=== PATIENT | male | born 1955 | race Two or more races ===

== ENCOUNTER 2017-07-05 19:52 | Inpatient (IN) | payer MEDICARE, OTHER, MEDICAID ==
--- NOTE | 2017-07-05 21:39 | ED Physician Chart ---
ED Chief Complaint/HPI - Patient Information Date Seen:: 07/05/17 Time Seen:: 21:10 Chief Complaint:: agitation History of Present Illness:: location: general quality: agitation severity: moderate duration: one day context: pt with agitation at SNF, evaluated by RNs at facility and physician contacted. advised send to ER for medical evaluation and then possible yury-psyc evaluation. medics report stable vital signs during transport. on arrival to ER, pt in stable condition while in ER no acute medical complaint. mod factors: none assoc s/s: none hx from medics, RNs, patient Allergies:: Allergies Allergy/AdvReac Type Severity Reaction Status Date / Time No Known Allergies Allergy Verified 07/05/17 21:10 Vitals:: Vital Signs - 8 hr 07/05/17 20:30 Temp 98.0 F HR 65 RR 18 BP 118/70 O2 Sat % 100 Historian:: Patient, EMS, Other Review:: Nurse's Note Reviewed, EMS run form Reviewed ED Review of Systems - Review of Systems General/Constitutional: No fever, No chills, No weight loss, No weakness, No diaphoresis, No edema, No loss of appetite Skin: No skin lesions, No rash, No bruising Head: No headache, No light-headedness Eyes: No loss of vision, No pain, No diplopia ENT: No earache, No nasal drainage, No sore throat, No tinnitus Neck: No neck pain, No swelling, No thyromegaly, No stiffness, No mass noted Cardio Vascular: No chest pain, No palpitations, No PND, No orthopnea, No edema Pulmonary: No SOB, No cough, No sputum, No wheezing GI: No nausea, No vomiting, No diarrhea, No pain, No melena, No hematochezia, No constipation, No hematemesis G/U: No dysuria, No frequency, No hematuria Musculoskeletal: No bone or joint pain, No back pain, No muscle pain Endocrine: No polyuria, No polydipsia Psychiatric: No prior psych history, No depression, No anxiety, No suicidal ideation Hematopoietic: No bruising, No lymphadenopathy Allergic/Immuno: No urticaria, No angioedema Neurological: No syncope, No focal symptoms, No weakness, No paresthesia, No headache, No seizure, No dizziness, No confusion, No vertigo ED Past Medical History - Past Medical History Past Medical History: HTN, CAD, CVA/TIA, Other (cervical stenosis) Family History: None Social History: Smoker, No Alcohol, No Drug Use, Single, Care Facility Surgical History: other (back surgery, dilaudid pump) Psychiatricy History: Other Medication: Reviewed Family Medical History - Family Member Mother Ethnicity: Non- ED Physical Exam - Physical Examination General/Constitutional: Awake, Well-developed, well-nourished, Alert, No distress, GCS 15, Non-toxic appearing, Ambulatory Head: Atraumatic Eyes: Lids, conjuctiva normal, PERRL, EOMI Skin: Nl inspection, No rash, No skin lesions, No ecchymosis, Well hydrated, No lymphadenopathy ENMT: External ears, nose nl Neck: Nontender, Full ROM w/o pain, No JVD, No nuchal rigidity, No bruit, No mass, No stridor Respiratory: Nl effort/Exclusion, Clear to Auscultation, No Wheeze/Rhonchi/Rales Cardio Vascular: RRR, No murmur, gallop, rubs, NL S1 S2 GI: No tenderness/rebounding/guarding, Normal BS's, No mass/bruits, No McBurney tenderness : No CVA tenderness Extremities: No tenderness or effusion, Full ROM, normal strength in all extremities, No edema, Normal digits & nails Neuro/Psych: Alert/oriented, DTR's symmetric, Normal sensory exam, Normal motor strength, Mood normal, Normal gait, No focal deficits Misc: Normal back, No paraspinal tenderness ED Labs/Radiology/EKG Results - Lab Results Results: Laboratory Tests 07/05/17 07/05/17 21:38 21:38 WBC 7.4 RBC 4.10 L Hgb 13.2 Hct 39.7 L MCV 96.8 MCH 32.1 H MCHC Differential 33.2 RDW 13.2 Plt Count 265 MPV 6.8 Neutrophils % 70.2 Lymphocytes % 18.4 L Monocytes % 8.5 Eosinophils % 2.6 Basophils % 0.3 ESR 19 Sodium 134 L Potassium 4.0 Chloride 104 Carbon Dioxide 23.0 Anion Gap 11.0 BUN 55 H Creatinine 2.4 H Est GFR ( Amer) 35.7 Est GFR (Non-Af Amer) 29.5 BUN/Creatinine Ratio 22.9 Glucose 146 H Calcium 9.0 Total Bilirubin 0.3 AST 13 ALT 12 Alkaline Phosphatase 75 Total Protein 6.3 Albumin 4.2 Globulin 2.1 Albumin/Globulin Ratio 2.0 H - EKG Interpretations Comments:: EKG NSR 64 sinus rhythm probable left atrial enlargement left ventricular hypertrophy pt with no chest pain abnormal EKG with chronic findings ER READ ED Assessment - Assessment General Assessment: pt in stable condition while in ER. ED Septic Shock - . Is Septic Shock (SBP<90, OR Lactate>4 mmol\L) present?: No - <6hrs of presentation: Vital Signs: Vital Signs - 8 hr 07/05/17 20:30 Temp 98.0 F HR 65 RR 18 BP 118/70 O2 Sat % 100 ED Reassessment (Disposition) - Reassessment Reassessment:: pt in stable condition while in ER Reassessment Condition:: Unchanged - Diagnosis Diagnosis:: medical clearance for yury-psyc - Patient Disposition Discharge/Transfer:: Acute Care w/in this hosp Admitted to:: [facility] Admitting Medical Physician:: Abiodun Gallagher Admitting Psych Physician:: Flaco Aaron Time:: 22:45 Condition at Disposition:: Stable ED Discharge Plan - Patient Disposition Instructions: Chest Wall Pain, [id number] Additional Instructions: follow up with your industrial gas servicer VIRY drink plenty of water (about 2000ml/day)
[2017-07-05 21:44] LABS: % BASOPHILS 0.3 % (0.0-2.0); % EOSINOPHILS 2.6 % (0.0-5.0); % LYMPHOCYTES 18.4 % (20.0-50.0); % MONOCYTES 8.5 % (2.0-10.0); % NEUTROPHILS 70.2 % (40.0-80.0); EOSINOPHILE ABSOLUTE 0.2 Th/cmm (0.1-0.4); HEMATOCRIT 39.7 % (41.0-60); HEMOGLOBIN 13.2 gm/dL (12-16); LYMPHOCYTE ABSOLUTE 1.4 Th/cmm (1.5-3.0); MEAN CELL VOLUME 96.8 fl (80-99); MEAN CORPUSCULAR HEMOGLOBIN 32.1 pg (26.0-30.0); MEAN CORPUSCULAR HGB CONC 33.2 pg (28.0-36.0); MEAN PLATELET VOLUME 6.8 fl; MONOCYTE ABSOLUTE 0.6 Th/cmm (0.3-1.0); NEUTROPHILE ABSOLUTE 5.2 Th/cmm (1.8-8.0); PLATELET COUNT 265 Th/cmm (150-400); RED CELL DISTRIBUTION WIDTH 13.2 % (11.5-20.0); WHITE BLOOD COUNT 7.4 Th/cmm (4.8-10.8)
[2017-07-05 22:00] LABS: ALBUMIN 4.2 gm/dL (4.2-5.5); BILIRUBIN,TOTAL 0.3 mg/dL (0.3-1.0); CREATININE - SERUM 2.4 mg/dL (0.7-1.3); GFR AFRICAN-AMERICAN 35.7 ml/min (>90); GFR NON AFRICAN-AMERICAN 29.5 ml/min; TOTAL PROTEIN,SERUM 6.3 gm/dL (6.0-8.3)
[2017-07-05 22:19] LABS: ESR SEDIMENTATION SED RATE 19 mm/hr (0-20)
[2017-07-06 00:50] VITALS: BP 162/94
[2017-07-06] MEDS ORDERED: RANOLAZINE 1000 MG PO SCH (09:00)
--- NOTE | 2017-07-06 23:29 | History & Physical ---
ADMIT DATE: 07/05/2017 HISTORY OF PRESENT ILLNESS: The patient is a 62-year-old male with a long history of hypertension, hyperlipidemia, gouty arthritis, benign prostatic hypertrophy, and dementia; admitted to [facility] under Dr. Aaron's service for evaluation and treatment. The patient is a poor historian. PAST MEDICAL HISTORY: Significant for hypertension, hyperlipidemia, benign prostatic hypertrophy, gouty arthritis, coronary artery disease, and dementia. PAST SURGICAL HISTORY: No recent surgery. ALLERGIES: None. MEDICATIONS: Follow admission reconciliation. SOCIAL HISTORY: No smoking, no alcohol, no drug. FAMILY HISTORY: Noncontributory. REVIEW OF SYSTEMS: IMMUNOSYSTEM: No history of chronic renal disorder. CARDIOVASCULAR SYSTEM: He has history of hypertension and coronary artery disease. ENDOCRINE SYSTEM: No diabetes or thyroid problem. GASTROINTESTINAL SYSTEM: No upper or lower gastrointestinal bleed. NEUROLOGICAL SYSTEM: No seizure disorder. SKELETOMUSCULAR SYSTEM: No muscular dystrophy. HEMATOLOGIC SYSTEM: No bleeding tendencies. RESPIRATORY SYSTEM: No asthma. GENITOURINARY SYSTEM: He has benign prostatic hypertrophy. PHYSICAL EXAMINATION: GENERAL: He is awake, alert, not coherent. VITAL SIGNS: Temperature 98.5, heart rate 64, and blood pressure 126/70. HEENT: Normocephalic. Pupils reactive to light and accommodation. Sclerae clear. NECK: Supple. Negative for lymphadenopathy, JVD, or bruit. CHEST: Air bilateral normal. No rhonchi or wheezing. HEART: S1, S2 normal. No gallop rhythm. ABDOMEN: Soft, bowel sounds positive. EXTREMITIES: No edema. NEUROLOGIC: Awake, alert, oriented. No focal motor or sensory deficits. Cranial nerves II through XII grossly intact. LABORATORY DATA: White blood 7.4, hemoglobin 13.2, hematocrit 39.7, and platelet 265. Sodium 134, potassium 4, BUN is 55, and creatinine 2.4. ASSESSMENT: 1. Hypertension. 2. Gouty arthritis. 3. Chronic kidney disease. 4. Hyperlipidemia. 5. Benign prostatic hypertrophy. 6. Coronary artery disease. 7. Dementia. The patient was admitted to the hospital under Dr. Aaron's service. Medical problems to be addressed during this hospitalization is dementia. Medical problems addressed at discharge, hypertension, chronic kidney disease, hyperlipidemia, coronary artery disease, gouty arthritis. The patient is medically stable for activity. Thank Dr. Aaron for asking me to see your patient. JOB# [id number]
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
[2017-07-07] MEDS ORDERED: Non-Formulary Item 1 EA (Fluoxetine Hcl [Prozac] 40 MG) PO SCH (09:00)
[2017-07-07] MEDS: buPROPion XL 150 mg T 24 H PO SCH (10:27)
--- NOTE | 2017-07-07 20:24 | Internal Medicine Prog Note ---
Internal Medicine Subjective - Subjective Service Date: 07/07/17 Patient seen and examined:: with staff Patient is:: awake, non-interactive, in bed, confused Per staff patient has:: no adverse event Internal Medicine Objective - Results Result Diagrams: 07/05/17 21:38 07/05/17 21:38 Recent Labs: Laboratory Last Values WBC 7.4 Th/cmm (4.8-10.8) 07/05/17 21:38 RBC 4.10 Mil/cmm (4.30-5.70) L 07/05/17 21:38 Hgb 13.2 gm/dL (12-16) 07/05/17 21:38 Hct 39.7 % (41.0-60) L 07/05/17 21:38 MCV 96.8 fl (80-99) 07/05/17 21:38 MCH 32.1 pg (26.0-30.0) H 07/05/17 21:38 MCHC Differential 33.2 pg (28.0-36.0) 07/05/17 21:38 RDW 13.2 % (11.5-20.0) 07/05/17 21:38 Plt Count 265 Th/cmm (150-400) 07/05/17 21:38 MPV 6.8 fl 07/05/17 21:38 Neutrophils % 70.2 % (40.0-80.0) 07/05/17 21:38 Lymphocytes % 18.4 % (20.0-50.0) L 07/05/17 21:38 Monocytes % 8.5 % (2.0-10.0) 07/05/17 21:38 Eosinophils % 2.6 % (0.0-5.0) 07/05/17 21:38 Basophils % 0.3 % (0.0-2.0) 07/05/17 21:38 ESR 19 mm/hr (0-20) 07/05/17 21:38 Sodium 134 mEq/L (136-145) L 07/05/17 21:38 Potassium 4.0 mEq/L (3.5-5.1) 07/05/17 21:38 Chloride 104 mEq/L (98-107) 07/05/17 21:38 Carbon Dioxide 23.0 mEq/L (21.0-31.0) 07/05/17 21:38 Anion Gap 11.0 (7.0-16.0) 07/05/17 21:38 BUN 55 mg/dL (7-25) H 07/05/17 21:38 Creatinine 2.4 mg/dL (0.7-1.3) H 07/05/17 21:38 Est GFR ( Amer) 35.7 ml/min (>90) 07/05/17 21:38 Est GFR (Non-Af Amer) 29.5 ml/min 07/05/17 21:38 BUN/Creatinine Ratio 22.9 07/05/17 21:38 Glucose 146 mg/dL (70-105) H 07/05/17 21:38 Calcium 9.0 mg/dL (8.6-10.3) 07/05/17 21:38 Total Bilirubin 0.3 mg/dL (0.3-1.0) 07/05/17 21:38 AST 13 U/L (13-39) 07/05/17 21:38 ALT 12 U/L (7-52) 07/05/17 21:38 Alkaline Phosphatase 75 U/L (34-104) 07/05/17 21:38 Total Protein 6.3 gm/dL (6.0-8.3) 07/05/17 21:38 Albumin 4.2 gm/dL (4.2-5.5) 07/05/17 21:38 Globulin 2.1 gm/dL 07/05/17 21:38 Albumin/Globulin Ratio 2.0 (1.0-1.8) H 07/05/17 21:38 TSH 2.27 uIU/ml (0.34-5.60) 07/05/17 21:38 - Physical Exam Vitals and I&O: Vital Signs Temp 99.8 F 07/07/17 15:45 Pulse 80 07/07/17 17:17 Resp 20 07/07/17 15:45 BP 135/65 07/07/17 17:17 Pulse Ox 97 07/07/17 15:45 Intake & Output 07/07/17 07/07/17 07/08/17 06:59 18:59 06:59 Intake Total 250 Balance 250 Intake: Oral 250 Other: # Voids 3 # Bowel Movements 0 Active Medications: Current Medications Acetaminophen (Tylenol) 650 mg PO Q4HR PRN PRN Reason: Pain or Fever >101 Stop: 09/04/17 01:19 Acetaminophen/Hydrocodone Bitart ([place] 10 Mg/325 Mg) 1 tab PO Q6H PRN PRN Reason: Pain (Moderate) Stop: 09/04/17 01:19 Allopurinol (Zyloprim) 300 mg PO DAILY [facility] Stop: 09/04/17 08:59 Last Admin: 07/07/17 10:23 Dose: 300 mg Alprazolam (Xanax) 2 mg PO Q8HR PRN PRN Reason: Anxiety Amlodipine Besylate (Norvasc) 10 mg PO DAILY [facility] Stop: 09/04/17 08:59 Last Admin: 07/07/17 10:26 Dose: 10 mg Atorvastatin Calcium (Lipitor) 80 mg PO DAILY [facility] PRN Reason: Protocol Stop: 09/04/17 08:59 Last Admin: 07/07/17 11:51 Dose: 80 mg Bupropion HCl (Wellbutrin Xl) 150 mg PO DAILY [facility] PRN Reason: Protocol Stop: 09/05/17 08:59 Last Admin: 07/07/17 10:27 Dose: Not Given Clopidogrel Bisulfate (Plavix) 75 mg PO DAILY [facility] Stop: 09/04/17 08:59 Last Admin: 07/07/17 10:24 Dose: 75 mg Colchicine (Colcrys) 0.6 mg PO DAILY [facility] Stop: 09/04/17 08:59 Last Admin: 07/07/17 11:52 Dose: 0.6 mg Ezetimibe (Zetia) 10 mg PO DAILY [facility] Stop: 09/04/17 08:59 Last Admin: 07/07/17 10:26 Dose: 10 mg Fluoxetine HCl (Prozac) 40 mg PO DAILY [facility] Stop: 09/05/17 08:59 Folic Acid (Folate) 1 mg PO DAILY [facility] Stop: 09/04/17 08:59 Last Admin: 07/07/17 10:26 Dose: 1 mg Gabapentin (Neurontin) 800 mg PO Q8HR [facility] Stop: 09/04/17 04:59 Last Admin: 07/07/17 15:07 Dose: 800 mg Hydralazine HCl (Apresoline) 50 mg PO Q8HR [facility] Stop: 09/04/17 04:59 Last Admin: 07/07/17 15:08 Dose: 50 mg Isosorbide Mononitrate (Imdur) 60 mg PO BID [facility] Stop: 09/04/17 08:59 Last Admin: 07/07/17 17:17 Dose: 60 mg Memantine (Namenda) 10 mg PO DAILY [facility] Stop: 09/04/17 08:59 Last Admin: 07/07/17 10:26 Dose: 10 mg Metoprolol Succinate (Toprol Xl) 25 mg PO DAILY [facility] Stop: 09/04/17 08:59 Last Admin: 07/07/17 10:25 Dose: 25 mg Miscellaneous (Ranolazine [Ranexa]) 1,000 mg PO BID [facility] Stop: 09/04/17 08:59 Nitroglycerin (Nitrostat) 0.4 mg SL Q5MIN PRN PRN Reason: Chest Pain Stop: 09/04/17 01:19 Oxycodone HCl (Oxycontin) 10 mg PO TID PRN PRN Reason: Pain (Severe) Stop: 09/04/17 01:19 Risperidone (Risperdal) 1 mg PO BID [facility] PRN Reason: Protocol Stop: 09/05/17 08:59 Last Admin: 07/07/17 17:18 Dose: Not Given Terazosin HCl (Hytrin) 10 mg PO HS [facility] Stop: 09/04/17 20:59 Last Admin: 07/06/17 21:17 Dose: 10 mg Trazodone HCl (Desyrel) 150 mg PO HS [facility] Stop: 09/05/17 20:59 General: demented HEENT: NC/AT, PERRLA, EOMI, anicteric sclerae, throat clear Neck: No thyromegaly, +2 carotid pulse wo bruit, No LAD Lungs: CTAB Cardiovascular: Normal S1, Normal S2, without murmur Abdomen: non-tender, non-distended Extremities: clear Neurological: no change Internal Medicine Assmt/Plan - Assessment Assessment: 1.HTN. 2.CAD. 3.BPH. 4.DEMENTIA. - Plan Plan: CONTINUE ON CURRENT MEDICATION AND DIET.
--- NOTE | 2017-07-08 03:11 | Progress Notes ---
DATE: 07/07/2017 SUBJECTIVE: Chart reviewed and the patient interviewed. Also, discussed the patient's condition with the staff and I reviewed records and labs. The patient remains in a depressed mood. He also minimizes the incidence why he came to the hospital. The patient also still has episodes of anxious and thoughts. He is isolative and withdrawn and wants to stay by himself most of the time. The patient denies any intention to harm himself or others. Otherwise, the patient is compliant with taking his medications with no side effects of medications. ASSESSMENT: The patient is still depressed, but not suicidal. TREATMENT PLAN: We will continue monitoring his behavior and we will continue working on his effective coping. Also evaluate his condition and the staff of prior to coming from the [facility] and what happened in his place prior to coming to [facility]. JOB# [id number]
[2017-07-08] MEDS: buPROPion XL 150 mg T 24 H PO SCH (08:20)
--- NOTE | 2017-07-08 17:20 | Internal Medicine Prog Note ---
Internal Medicine Subjective - Subjective Service Date: 07/08/17 Patient seen and examined:: with staff Patient is:: awake, non-interactive, in bed, confused Per staff patient has:: no adverse event Internal Medicine Objective - Results Result Diagrams: 07/05/17 21:38 07/05/17 21:38 Recent Labs: Laboratory Last Values WBC 7.4 Th/cmm (4.8-10.8) 07/05/17 21:38 RBC 4.10 Mil/cmm (4.30-5.70) L 07/05/17 21:38 Hgb 13.2 gm/dL (12-16) 07/05/17 21:38 Hct 39.7 % (41.0-60) L 07/05/17 21:38 MCV 96.8 fl (80-99) 07/05/17 21:38 MCH 32.1 pg (26.0-30.0) H 07/05/17 21:38 MCHC Differential 33.2 pg (28.0-36.0) 07/05/17 21:38 RDW 13.2 % (11.5-20.0) 07/05/17 21:38 Plt Count 265 Th/cmm (150-400) 07/05/17 21:38 MPV 6.8 fl 07/05/17 21:38 Neutrophils % 70.2 % (40.0-80.0) 07/05/17 21:38 Lymphocytes % 18.4 % (20.0-50.0) L 07/05/17 21:38 Monocytes % 8.5 % (2.0-10.0) 07/05/17 21:38 Eosinophils % 2.6 % (0.0-5.0) 07/05/17 21:38 Basophils % 0.3 % (0.0-2.0) 07/05/17 21:38 ESR 19 mm/hr (0-20) 07/05/17 21:38 Sodium 134 mEq/L (136-145) L 07/05/17 21:38 Potassium 4.0 mEq/L (3.5-5.1) 07/05/17 21:38 Chloride 104 mEq/L (98-107) 07/05/17 21:38 Carbon Dioxide 23.0 mEq/L (21.0-31.0) 07/05/17 21:38 Anion Gap 11.0 (7.0-16.0) 07/05/17 21:38 BUN 55 mg/dL (7-25) H 07/05/17 21:38 Creatinine 2.4 mg/dL (0.7-1.3) H 07/05/17 21:38 Est GFR ( Amer) 35.7 ml/min (>90) 07/05/17 21:38 Est GFR (Non-Af Amer) 29.5 ml/min 07/05/17 21:38 BUN/Creatinine Ratio 22.9 07/05/17 21:38 Glucose 146 mg/dL (70-105) H 07/05/17 21:38 Calcium 9.0 mg/dL (8.6-10.3) 07/05/17 21:38 Total Bilirubin 0.3 mg/dL (0.3-1.0) 07/05/17 21:38 AST 13 U/L (13-39) 07/05/17 21:38 ALT 12 U/L (7-52) 07/05/17 21:38 Alkaline Phosphatase 75 U/L (34-104) 07/05/17 21:38 Total Protein 6.3 gm/dL (6.0-8.3) 07/05/17 21:38 Albumin 4.2 gm/dL (4.2-5.5) 07/05/17 21:38 Globulin 2.1 gm/dL 07/05/17 21:38 Albumin/Globulin Ratio 2.0 (1.0-1.8) H 07/05/17 21:38 TSH 2.27 uIU/ml (0.34-5.60) 07/05/17 21:38 - Physical Exam Vitals and I&O: Vital Signs Temp 99.8 F 07/07/17 15:45 Pulse 73 07/08/17 17:10 Resp 18 07/07/17 20:00 BP 108/53 07/08/17 17:10 Pulse Ox 97 07/07/17 15:45 Intake & Output 07/07/17 07/08/17 07/08/17 18:59 06:59 18:59 Other: Stool Characteristics Formed Active Medications: Current Medications Acetaminophen (Tylenol) 650 mg PO Q4HR PRN PRN Reason: Pain or Fever >101 Stop: 09/04/17 01:19 Acetaminophen/Hydrocodone Bitart ([place] 10 Mg/325 Mg) 1 tab PO Q6H PRN PRN Reason: Pain (Moderate) Stop: 09/04/17 01:19 Allopurinol (Zyloprim) 300 mg PO DAILY [facility] Stop: 09/04/17 08:59 Last Admin: 07/08/17 08:18 Dose: 300 mg Alprazolam (Xanax) 2 mg PO Q8HR PRN PRN Reason: Anxiety Amlodipine Besylate (Norvasc) 10 mg PO DAILY [facility] Stop: 09/04/17 08:59 Last Admin: 07/08/17 08:19 Dose: 10 mg Atorvastatin Calcium (Lipitor) 80 mg PO DAILY [facility] PRN Reason: Protocol Stop: 09/04/17 08:59 Last Admin: 07/08/17 08:19 Dose: 80 mg Bupropion HCl (Wellbutrin Xl) 150 mg PO DAILY [facility] PRN Reason: Protocol Stop: 09/05/17 08:59 Last Admin: 07/08/17 08:20 Dose: 150 mg Clopidogrel Bisulfate (Plavix) 75 mg PO DAILY [facility] Stop: 09/04/17 08:59 Last Admin: 07/08/17 08:20 Dose: 75 mg Colchicine (Colcrys) 0.6 mg PO DAILY [facility] Stop: 09/04/17 08:59 Last Admin: 07/08/17 08:20 Dose: 0.6 mg Ezetimibe (Zetia) 10 mg PO DAILY [facility] Stop: 09/04/17 08:59 Last Admin: 07/08/17 08:21 Dose: 10 mg Fluoxetine HCl (Prozac) 40 mg PO DAILY [facility] Stop: 09/05/17 08:59 Last Admin: 07/08/17 08:21 Dose: 40 mg Folic Acid (Folate) 1 mg PO DAILY [facility] Stop: 09/04/17 08:59 Last Admin: 07/08/17 08:21 Dose: 1 mg Gabapentin (Neurontin) 800 mg PO Q8HR [facility] Stop: 09/04/17 04:59 Last Admin: 07/08/17 12:07 Dose: 800 mg Hydralazine HCl (Apresoline) 50 mg PO Q8HR [facility] Stop: 09/04/17 04:59 Last Admin: 07/08/17 12:04 Dose: Not Given Isosorbide Mononitrate (Imdur) 60 mg PO BID [facility] Stop: 09/04/17 08:59 Last Admin: 07/08/17 17:10 Dose: Not Given Memantine (Namenda) 10 mg PO DAILY [facility] Stop: 09/04/17 08:59 Last Admin: 07/08/17 08:23 Dose: 10 mg Metoprolol Succinate (Toprol Xl) 25 mg PO DAILY [facility] Stop: 09/04/17 08:59 Last Admin: 07/08/17 08:23 Dose: 25 mg Miscellaneous (Ranolazine [Ranexa]) 1,000 mg PO BID [facility] Stop: 09/04/17 08:59 Nitroglycerin (Nitrostat) 0.4 mg SL Q5MIN PRN PRN Reason: Chest Pain Stop: 09/04/17 01:19 Oxycodone HCl (Oxycontin) 10 mg PO TID PRN PRN Reason: Pain (Severe) Stop: 09/04/17 01:19 Risperidone (Risperdal) 1 mg PO BID [facility] PRN Reason: Protocol Stop: 09/05/17 08:59 Last Admin: 07/08/17 16:12 Dose: 1 mg Terazosin HCl (Hytrin) 10 mg PO [facility] Stop: 09/04/17 20:59 Last Admin: 07/07/17 20:47 Dose: Not Given Trazodone HCl (Desyrel) 150 mg PO HS [facility] Stop: 09/05/17 20:59 Last Admin: 07/07/17 20:45 Dose: 150 mg General: demented HEENT: NC/AT, PERRLA, EOMI, anicteric sclerae, throat clear Neck: No thyromegaly, +2 carotid pulse wo bruit, No LAD Lungs: CTAB Cardiovascular: Normal S1, Normal S2, without murmur Abdomen: non-tender, non-distended Extremities: clear Neurological: no change Internal Medicine Assmt/Plan - Assessment Assessment: 1.HTN. 2.CAD. 3.BPH. 4.DEMENTIA. - Plan Plan: CONTINUE ON CURRENT MEDICATION AND DIET. Nutritional Asmnt/Malnutr-PDOC - Dietary Evaluation Malnutrition Findings (Please click <Entered> for more info): Nutritional Asmnt/Malnutrition Start: 07/08/17 11: 55 Text: Status: Complete Freq: Document 07/08/17 11:56 [email or web address] (Rec: 07/08/17 12:08 [email or web address] [id number]) Nutritional Asmnt/Malnutrition Patient General Information Nutritional Screening Moderate Risk Diagnosis psychosis Pertinent Medical Hx/Surgical Hx HTN, HLD, gout, arthritis, BPH , dementia Subjective Information Pt confused. PO intake has been 100% since admit. Current Diet Order/ Nutrition Support mechanical soft, chopped, EMILIE Patient / S.O Not Indicated Pertinent Medications plavix, zetia, folate, hytrin Pertinent Labs 07/05 Na: 134, BUN: 55, cr: 2.4 , glucose: 146 Nutritional Hx/Data Height 1.75 m Height (Calculated Centimeters) 175.3 Current Weight (lbs) 56.699 kg Weight (Calculated Kilograms) 56.7 Weight (Calculated Grams) 53231.0 [place] Body Weight 160 % [place] Body Weight 78 Body Mass Index (BMI) 18.4 Weight Status Underweight GI Symptoms GI Symptoms None Last BM 07/08 Difficult in: Chewing Skin Integrity/Comment: intact, no edema Current %PO Good (75-100%) Estimated Nutritional Goals BEE in Kcals: Using Current wt Calories/Kcals/Kg 30-35 wt gain Kcals Calculated 2458-6839 Protein: Using Current wt Protein g/k.6-0.8 renal impairment Protein Calculated 34-46 g Fluid: ml 4664-1804 mL Nutritional Problem 2. Problem Problem underweight Etiology lifestyle, ? DM Signs/Symptoms: BMI: 18.4 1. Problem Problem altered nutrition related lab values Etiology ? CKD, ? DM Signs/Symptoms: BUN: 55, cr: 2.4, glcuose: 146 Malnutrition Alert Is there a minimum of two criteria No selected? Query Text:Check all the applicable criteria. A minimum of two criteria are recommended for diagnosis of either severe or non-severe malnutrition. Malnutrition Related to Morbid Obesity Malnutrition related to morbid obesity No Intervention/Recommendation Recommendations by RD Increase Calorie Intake Comments 1. Change diet to mechanical soft, chopped, EMILIE diet, double portion of carbs for wt gain without further impairing renal function 2. Check hgba1c due to elevated BS Expected Outcomes/Goals Expected Outcomes/Goals PO intake >50%, no wt loss, labs approach WNL monitor wts, labs, skin, PO intake
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
[2017-07-09] MEDS: buPROPion XL 150 mg T 24 H PO SCH (08:28)
[2017-07-09] MEDS: Hydrocodone/APAP 10 mg/325 mg Tab PO PRN (14:22)
--- NOTE | 2017-07-09 20:10 | Internal Medicine Prog Note ---
Internal Medicine Subjective - Subjective Service Date: 07/09/17 Patient seen and examined:: with staff (HE FEELS WELL.HIS BP HAS BEEN LOW.) Patient is:: awake, non-interactive, in bed, confused Per staff patient has:: no adverse event Internal Medicine Objective - Results Result Diagrams: 07/05/17 21:38 07/05/17 21:38 Recent Labs: Laboratory Last Values WBC 7.4 Th/cmm (4.8-10.8) 07/05/17 21:38 RBC 4.10 Mil/cmm (4.30-5.70) L 07/05/17 21:38 Hgb 13.2 gm/dL (12-16) 07/05/17 21:38 Hct 39.7 % (41.0-60) L 07/05/17 21:38 MCV 96.8 fl (80-99) 07/05/17 21:38 MCH 32.1 pg (26.0-30.0) H 07/05/17 21:38 MCHC Differential 33.2 pg (28.0-36.0) 07/05/17 21:38 RDW 13.2 % (11.5-20.0) 07/05/17 21:38 Plt Count 265 Th/cmm (150-400) 07/05/17 21:38 MPV 6.8 fl 07/05/17 21:38 Neutrophils % 70.2 % (40.0-80.0) 07/05/17 21:38 Lymphocytes % 18.4 % (20.0-50.0) L 07/05/17 21:38 Monocytes % 8.5 % (2.0-10.0) 07/05/17 21:38 Eosinophils % 2.6 % (0.0-5.0) 07/05/17 21:38 Basophils % 0.3 % (0.0-2.0) 07/05/17 21:38 ESR 19 mm/hr (0-20) 07/05/17 21:38 Sodium 134 mEq/L (136-145) L 07/05/17 21:38 Potassium 4.0 mEq/L (3.5-5.1) 07/05/17 21:38 Chloride 104 mEq/L (98-107) 07/05/17 21:38 Carbon Dioxide 23.0 mEq/L (21.0-31.0) 07/05/17 21:38 Anion Gap 11.0 (7.0-16.0) 07/05/17 21:38 BUN 55 mg/dL (7-25) H 07/05/17 21:38 Creatinine 2.4 mg/dL (0.7-1.3) H 07/05/17 21:38 Est GFR ( Amer) 35.7 ml/min (>90) 07/05/17 21:38 Est GFR (Non-Af Amer) 29.5 ml/min 07/05/17 21:38 BUN/Creatinine Ratio 22.9 07/05/17 21:38 Glucose 146 mg/dL (70-105) H 07/05/17 21:38 Calcium 9.0 mg/dL (8.6-10.3) 07/05/17 21:38 Total Bilirubin 0.3 mg/dL (0.3-1.0) 07/05/17 21:38 AST 13 U/L (13-39) 07/05/17 21:38 ALT 12 U/L (7-52) 07/05/17 21:38 Alkaline Phosphatase 75 U/L (34-104) 07/05/17 21:38 Total Protein 6.3 gm/dL (6.0-8.3) 07/05/17 21:38 Albumin 4.2 gm/dL (4.2-5.5) 07/05/17 21:38 Globulin 2.1 gm/dL 07/05/17 21:38 Albumin/Globulin Ratio 2.0 (1.0-1.8) H 07/05/17 21:38 TSH 2.27 uIU/ml (0.34-5.60) 07/05/17 21:38 - Physical Exam Vitals and I&O: Vital Signs Temp 98.8 F 07/09/17 16:47 Pulse 59 07/09/17 16:47 Resp 18 07/09/17 16:47 BP 118/61 07/09/17 16:47 Pulse Ox 98 07/09/17 16:47 Intake & Output 07/09/17 07/09/17 07/10/17 06:59 18:59 06:59 Intake Total 250 Balance 250 Intake: Oral 250 Other: # Voids 1 # Bowel Movements 0 Stool Characteristics Formed Active Medications: Current Medications Acetaminophen (Tylenol) 650 mg PO Q4HR PRN PRN Reason: Pain or Fever >101 Stop: 09/04/17 01:19 Acetaminophen/Hydrocodone Bitart ([place] 10 Mg/325 Mg) 1 tab PO Q6H PRN PRN Reason: Pain (Moderate) Stop: 09/04/17 01:19 Last Admin: 07/09/17 14:22 Dose: 1 tab Allopurinol (Zyloprim) 300 mg PO DAILY [facility] Stop: 09/04/17 08:59 Last Admin: 07/09/17 08:26 Dose: 300 mg Alprazolam (Xanax) 2 mg PO Q8HR PRN PRN Reason: Anxiety Amlodipine Besylate (Norvasc) 10 mg PO DAILY [facility] Stop: 09/04/17 08:59 Last Admin: 07/09/17 08:27 Dose: 10 mg Atorvastatin Calcium (Lipitor) 80 mg PO DAILY [facility] PRN Reason: Protocol Stop: 09/04/17 08:59 Last Admin: 07/09/17 08:28 Dose: 80 mg Bupropion HCl (Wellbutrin Xl) 150 mg PO DAILY [facility] PRN Reason: Protocol Stop: 09/05/17 08:59 Last Admin: 07/09/17 08:28 Dose: 150 mg Clopidogrel Bisulfate (Plavix) 75 mg PO DAILY [facility] Stop: 09/04/17 08:59 Last Admin: 07/09/17 08:28 Dose: 75 mg Colchicine (Colcrys) 0.6 mg PO DAILY [facility] Stop: 09/04/17 08:59 Last Admin: 07/09/17 09:17 Dose: 0.6 mg Ezetimibe (Zetia) 10 mg PO DAILY [facility] Stop: 09/04/17 08:59 Last Admin: 07/09/17 08:28 Dose: 10 mg Fluoxetine HCl (Prozac) 40 mg PO DAILY [facility] Stop: 09/05/17 08:59 Last Admin: 07/09/17 08:29 Dose: 40 mg Folic Acid (Folate) 1 mg PO DAILY [facility] Stop: 09/04/17 08:59 Last Admin: 07/09/17 08:29 Dose: 1 mg Gabapentin (Neurontin) 800 mg PO Q8HR [facility] Stop: 09/04/17 04:59 Last Admin: 07/09/17 14:00 Dose: 800 mg Hydralazine HCl (Apresoline) 50 mg PO Q8HR [facility] Stop: 07/10/17 20:05 Last Admin: 07/09/17 14:22 Dose: 50 mg Isosorbide Mononitrate (Imdur) 60 mg PO BID [facility] Stop: 09/04/17 08:59 Last Admin: 07/09/17 16:29 Dose: 60 mg Memantine (Namenda) 10 mg PO DAILY [facility] Stop: 09/04/17 08:59 Last Admin: 07/09/17 08:29 Dose: 10 mg Metoprolol Succinate (Toprol Xl) 25 mg PO DAILY [facility] Stop: 09/04/17 08:59 Last Admin: 07/09/17 08:30 Dose: 25 mg Miscellaneous (Ranolazine [Ranexa]) 1,000 mg PO BID [facility] Stop: 09/04/17 08:59 Nitroglycerin (Nitrostat) 0.4 mg SL Q5MIN PRN PRN Reason: Chest Pain Stop: 09/04/17 01:19 Oxycodone HCl (Oxycontin) 10 mg PO TID PRN PRN Reason: Pain (Severe) Stop: 09/04/17 01:19 Last Admin: 07/09/17 16:32 Dose: 10 mg Risperidone (Risperdal) 1 mg PO BID [facility] PRN Reason: Protocol Stop: 09/05/17 08:59 Last Admin: 07/09/17 16:32 Dose: 1 mg Terazosin HCl (Hytrin) 10 mg PO [facility] Stop: 09/04/17 20:59 Last Admin: 07/08/17 21:24 Dose: Not Given Trazodone HCl (Desyrel) 150 mg PO [facility] Stop: 09/05/17 20:59 Last Admin: 07/08/17 21:24 Dose: 150 mg General: demented HEENT: NC/AT, PERRLA, EOMI, anicteric sclerae, throat clear Neck: No thyromegaly, +2 carotid pulse wo bruit, No LAD Lungs: CTAB Cardiovascular: Normal S1, Normal S2, without murmur Abdomen: non-tender, non-distended Extremities: clear Neurological: no change Internal Medicine Assmt/Plan - Assessment Assessment: 1.HTN. 2.CAD. 3.BPH. 4.DEMENTIA. - Plan Plan: CONTINUE ON CURRENT MEDICATION AND DIET.DC HYDRALAZINE. Nutritional Asmnt/Malnutr-PDOC - Dietary Evaluation Malnutrition Findings (Please click <Entered> for more info): Nutritional Asmnt/Malnutrition Start: 07/08/17 11: 55 Text: Status: Complete Freq: Document 07/08/17 11:56 [email or web address] (Rec: 07/08/17 12:08 [email or web address]) Nutritional Asmnt/Malnutrition Patient General Information Nutritional Screening Moderate Risk Diagnosis psychosis Pertinent Medical Hx/Surgical Hx HTN, HLD, gout, arthritis, BPH , dementia Subjective Information Pt confused. PO intake has been 100% since admit. Current Diet Order/ Nutrition Support mechanical soft, chopped, EMILIE Patient / S.O Not Indicated Pertinent Medications plavix, zetia, folate, hytrin Pertinent Labs 07/05 Na: 134, BUN: 55, cr: 2.4 , glucose: 146 Nutritional Hx/Data Height 1.75 m Height (Calculated Centimeters) 175.3 Current Weight (lbs) 56.699 kg Weight (Calculated Kilograms) 56.7 Weight (Calculated Grams) 97706.0 [place] Body Weight 160 % [place] Body Weight 78 Body Mass Index (BMI) 18.4 Weight Status Underweight GI Symptoms GI Symptoms None Last BM 07/08 Difficult in: Chewing Skin Integrity/Comment: intact, no edema Current %PO Good (75-100%) Estimated Nutritional Goals BEE in Kcals: Using Current wt Calories/Kcals/Kg 30-35 wt gain Kcals Calculated 6126-7988 Protein: Using Current wt Protein g/k.6-0.8 renal impairment Protein Calculated 34-46 g Fluid: ml 5553-6788 mL Nutritional Problem 2. Problem Problem underweight Etiology lifestyle, ? DM Signs/Symptoms: BMI: 18.4 1. Problem Problem altered nutrition related lab values Etiology ? CKD, ? DM Signs/Symptoms: BUN: 55, cr: 2.4, glcuose: 146 Malnutrition Alert Is there a minimum of two criteria No selected? Query Text:Check all the applicable criteria. A minimum of two criteria are recommended for diagnosis of either severe or non-severe malnutrition. Malnutrition Related to Morbid Obesity Malnutrition related to morbid obesity No Intervention/Recommendation Recommendations by RD Increase Calorie Intake Comments 1. Change diet to mechanical soft, chopped, EMILIE diet, double portion of carbs for wt gain without further impairing renal function 2. Check hgba1c due to elevated BS Expected Outcomes/Goals Expected Outcomes/Goals PO intake >50%, no wt loss, labs approach WNL monitor wts, labs, skin, PO intake
--- NOTE | 2017-07-09 22:29 | Progress Notes ---
DATE: SUBJECTIVE: Chart reviewed and the patient interviewed. Also discussed the patient's condition with the staff and reviewed. The patient is still depressed and withdrawn. The patient also is anxious about his discharge and about leaving the facility. He also still needs the assurance at times. Otherwise, the patient is compliant with taking his Wellbutrin. ASSESSMENT: The patient is still depressed. TREATMENT PLAN: We will continue monitoring his behavior. Also, continue to try to get more information in regard to his placement and his discharge. Also will work on his ineffective coping and followup. JOB# [id number]
[2017-07-10] MEDS: buPROPion XL 150 mg T 24 H PO SCH (08:53)
[2017-07-10] MEDS: Hydrocodone/APAP 10 mg/325 mg Tab PO PRN (10:09)
--- NOTE | 2017-07-10 21:14 | General Progress Note ---
Subjective - Review of Systems Service Date: 07/10/17 Subjective: resting comfortably no distress Objective - Results Result Diagrams: 07/05/17 21:38 07/05/17 21:38 Recent Labs: Laboratory Last Values WBC 7.4 Th/cmm (4.8-10.8) 07/05/17 21:38 RBC 4.10 Mil/cmm (4.30-5.70) L 07/05/17 21:38 Hgb 13.2 gm/dL (12-16) 07/05/17 21:38 Hct 39.7 % (41.0-60) L 07/05/17 21:38 MCV 96.8 fl (80-99) 07/05/17 21:38 MCH 32.1 pg (26.0-30.0) H 07/05/17 21:38 MCHC Differential 33.2 pg (28.0-36.0) 07/05/17 21:38 RDW 13.2 % (11.5-20.0) 07/05/17 21:38 Plt Count 265 Th/cmm (150-400) 07/05/17 21:38 MPV 6.8 fl 07/05/17 21:38 Neutrophils % 70.2 % (40.0-80.0) 07/05/17 21:38 Lymphocytes % 18.4 % (20.0-50.0) L 07/05/17 21:38 Monocytes % 8.5 % (2.0-10.0) 07/05/17 21:38 Eosinophils % 2.6 % (0.0-5.0) 07/05/17 21:38 Basophils % 0.3 % (0.0-2.0) 07/05/17 21:38 ESR 19 mm/hr (0-20) 07/05/17 21:38 Sodium 134 mEq/L (136-145) L 07/05/17 21:38 Potassium 4.0 mEq/L (3.5-5.1) 07/05/17 21:38 Chloride 104 mEq/L (98-107) 07/05/17 21:38 Carbon Dioxide 23.0 mEq/L (21.0-31.0) 07/05/17 21:38 Anion Gap 11.0 (7.0-16.0) 07/05/17 21:38 BUN 55 mg/dL (7-25) H 07/05/17 21:38 Creatinine 2.4 mg/dL (0.7-1.3) H 07/05/17 21:38 Est GFR ( Amer) 35.7 ml/min (>90) 07/05/17 21:38 Est GFR (Non-Af Amer) 29.5 ml/min 07/05/17 21:38 BUN/Creatinine Ratio 22.9 07/05/17 21:38 Glucose 146 mg/dL (70-105) H 07/05/17 21:38 Calcium 9.0 mg/dL (8.6-10.3) 07/05/17 21:38 Total Bilirubin 0.3 mg/dL (0.3-1.0) 07/05/17 21:38 AST 13 U/L (13-39) 07/05/17 21:38 ALT 12 U/L (7-52) 07/05/17 21:38 Alkaline Phosphatase 75 U/L (34-104) 07/05/17 21:38 Total Protein 6.3 gm/dL (6.0-8.3) 07/05/17 21:38 Albumin 4.2 gm/dL (4.2-5.5) 07/05/17 21:38 Globulin 2.1 gm/dL 07/05/17 21:38 Albumin/Globulin Ratio 2.0 (1.0-1.8) H 07/05/17 21:38 TSH 2.27 uIU/ml (0.34-5.60) 07/05/17 21:38 - Physical Exam Vitals and I&O: Vital Signs Temp 99.3 F 07/10/17 20:15 Pulse 64 07/10/17 20:15 Resp 20 07/10/17 20:15 BP 141/72 07/10/17 20:15 Pulse Ox 97 07/10/17 20:15 Intake & Output 07/10/17 07/10/17 07/11/17 06:59 18:59 06:59 Intake Total 240 Balance 240 Intake: Oral 240 Other: # Voids 2 # Bowel Movements 1 Active Medications: Current Medications Acetaminophen (Tylenol) 650 mg PO Q4HR PRN PRN Reason: Pain or Fever >101 Stop: 09/04/17 01:19 Acetaminophen/Hydrocodone Bitart ([place] 10 Mg/325 Mg) 1 tab PO Q6H PRN PRN Reason: Pain (Moderate) Stop: 09/04/17 01:19 Last Admin: 07/10/17 10:09 Dose: 1 tab Allopurinol (Zyloprim) 300 mg PO DAILY [facility] Stop: 09/04/17 08:59 Last Admin: 07/10/17 08:59 Dose: 300 mg Alprazolam (Xanax) 2 mg PO Q8HR PRN PRN Reason: Anxiety Amlodipine Besylate (Norvasc) 10 mg PO DAILY [facility] Stop: 09/04/17 08:59 Last Admin: 07/10/17 09:06 Dose: Not Given Atorvastatin Calcium (Lipitor) 80 mg PO DAILY [facility] PRN Reason: Protocol Stop: 09/04/17 08:59 Last Admin: 07/10/17 08:56 Dose: 80 mg Bupropion HCl (Wellbutrin Xl) 150 mg PO DAILY [facility] PRN Reason: Protocol Stop: 09/05/17 08:59 Last Admin: 07/10/17 08:53 Dose: 150 mg Clopidogrel Bisulfate (Plavix) 75 mg PO DAILY [facility] Stop: 09/04/17 08:59 Last Admin: 07/10/17 08:53 Dose: 75 mg Colchicine (Colcrys) 0.6 mg PO DAILY [facility] Stop: 09/04/17 08:59 Last Admin: 07/10/17 10:09 Dose: 0.6 mg Ezetimibe (Zetia) 10 mg PO DAILY [facility] Stop: 09/04/17 08:59 Last Admin: 07/10/17 09:00 Dose: 10 mg Fluoxetine HCl (Prozac) 40 mg PO DAILY [facility] Stop: 09/05/17 08:59 Last Admin: 07/10/17 09:00 Dose: 40 mg Folic Acid (Folate) 1 mg PO DAILY [facility] Stop: 09/04/17 08:59 Last Admin: 07/10/17 09:00 Dose: 1 mg Gabapentin (Neurontin) 800 mg PO Q8HR [facility] Stop: 09/04/17 04:59 Last Admin: 07/10/17 13:57 Dose: 800 mg Isosorbide Mononitrate (Imdur) 60 mg PO BID [facility] Stop: 09/04/17 08:59 Last Admin: 02/17/18 17:30 Dose: 60 mg Memantine (Namenda) 10 mg PO DAILY [facility] Stop: 09/04/17 08:59 Last Admin: 07/10/17 08:54 Dose: 10 mg Metoprolol Succinate (Toprol Xl) 25 mg PO DAILY [facility] Stop: 09/04/17 08:59 Last Admin: 07/10/17 09:07 Dose: Not Given Miscellaneous (Ranolazine [Ranexa]) 1,000 mg PO BID [facility] Stop: 09/04/17 08:59 Nitroglycerin (Nitrostat) 0.4 mg SL Q5MIN PRN PRN Reason: Chest Pain Stop: 09/04/17 01:19 Oxycodone HCl (Oxycontin) 10 mg PO TID PRN PRN Reason: Pain (Severe) Stop: 09/04/17 01:19 Last Admin: 07/09/17 16:32 Dose: 10 mg Risperidone (Risperdal) 1 mg PO BID [facility] PRN Reason: Protocol Stop: 09/05/17 08:59 Last Admin: 07/10/17 17:30 Dose: 1 mg Terazosin HCl (Hytrin) 10 mg PO HS [facility] Stop: 09/04/17 20:59 Last Admin: 07/09/17 21:18 Dose: Not Given Trazodone HCl (Desyrel) 150 mg PO [facility] Stop: 09/05/17 20:59 Last Admin: 07/09/17 21:16 Dose: 150 mg General: Alert, No acute distress HEENT: Atraumatic, PERRLA, EOMI Neck: Supple, JVD Cardiovascular: Regular rate, Normal S1, Normal S2 Lungs: Clear to auscultation Abdomen: Bowel sounds, Soft Assessment/Plan - Assessment Assessment: 1.HTN. 2.CAD. 3.BPH. 4.DEMENTIA - Plan Plan: cont current treatment Nutritional Asmnt/Malnutr-PDOC - Dietary Evaluation Malnutrition Findings (Please click <Entered> for more info): Nutritional Asmnt/Malnutrition Start: 07/08/17 11: 55 Text: Status: Complete Freq: Document 07/08/17 11:56 [email or web address] (Rec: 07/08/17 12:08 [email or web address]) Nutritional Asmnt/Malnutrition Patient General Information Nutritional Screening Moderate Risk Diagnosis psychosis Pertinent Medical Hx/Surgical Hx HTN, HLD, gout, arthritis, BPH , dementia Subjective Information Pt confused. PO intake has been 100% since admit. Current Diet Order/ Nutrition Support mechanical soft, chopped, EMILIE Patient / S.O Not Indicated Pertinent Medications plavix, zetia, folate, hytrin Pertinent Labs 07/05 Na: 134, BUN: 55, cr: 2.4 , glucose: 146 Nutritional Hx/Data Height 1.75 m Height (Calculated Centimeters) 175.3 Current Weight (lbs) 56.699 kg Weight (Calculated Kilograms) 56.7 Weight (Calculated Grams) 12494.0 [place] Body Weight 160 % [place] Body Weight 78 Body Mass Index (BMI) 18.4 Weight Status Underweight GI Symptoms GI Symptoms None Last BM 07/08 Difficult in: Chewing Skin Integrity/Comment: intact, no edema Current %PO Good (75-100%) Estimated Nutritional Goals BEE in Kcals: Using Current wt Calories/Kcals/Kg 30-35 wt gain Kcals Calculated 8517-8300 Protein: Using Current wt Protein g/k.6-0.8 renal impairment Protein Calculated 34-46 g Fluid: ml 0074-7544 mL Nutritional Problem 2. Problem Problem underweight Etiology lifestyle, ? DM Signs/Symptoms: BMI: 18.4 1. Problem Problem altered nutrition related lab values Etiology ? CKD, ? DM Signs/Symptoms: BUN: 55, cr: 2.4, glcuose: 146 Malnutrition Alert Is there a minimum of two criteria No selected? Query Text:Check all the applicable criteria. A minimum of two criteria are recommended for diagnosis of either severe or non-severe malnutrition. Malnutrition Related to Morbid Obesity Malnutrition related to morbid obesity No Intervention/Recommendation Recommendations by RD Increase Calorie Intake Comments 1. Change diet to mechanical soft, chopped, EMILIE diet, double portion of carbs for wt gain without further impairing renal function 2. Check hgba1c due to elevated BS Expected Outcomes/Goals Expected Outcomes/Goals PO intake >50%, no wt loss, labs approach WNL monitor wts, labs, skin, PO intake
[2017-07-11] MEDS: buPROPion XL 150 mg T 24 H PO SCH (08:53)
--- NOTE | 2017-07-11 10:35 | General Progress Note ---
Subjective - Review of Systems Service Date: 07/11/17 Subjective: resting comfortably no distress Objective - Results Result Diagrams: 07/05/17 21:38 07/05/17 21:38 Recent Labs: Laboratory Last Values WBC 7.4 Th/cmm (4.8-10.8) 07/05/17 21:38 RBC 4.10 Mil/cmm (4.30-5.70) L 07/05/17 21:38 Hgb 13.2 gm/dL (12-16) 07/05/17 21:38 Hct 39.7 % (41.0-60) L 07/05/17 21:38 MCV 96.8 fl (80-99) 07/05/17 21:38 MCH 32.1 pg (26.0-30.0) H 07/05/17 21:38 MCHC Differential 33.2 pg (28.0-36.0) 07/05/17 21:38 RDW 13.2 % (11.5-20.0) 07/05/17 21:38 Plt Count 265 Th/cmm (150-400) 07/05/17 21:38 MPV 6.8 fl 07/05/17 21:38 Neutrophils % 70.2 % (40.0-80.0) 07/05/17 21:38 Lymphocytes % 18.4 % (20.0-50.0) L 07/05/17 21:38 Monocytes % 8.5 % (2.0-10.0) 07/05/17 21:38 Eosinophils % 2.6 % (0.0-5.0) 07/05/17 21:38 Basophils % 0.3 % (0.0-2.0) 07/05/17 21:38 ESR 19 mm/hr (0-20) 07/05/17 21:38 Sodium 134 mEq/L (136-145) L 07/05/17 21:38 Potassium 4.0 mEq/L (3.5-5.1) 07/05/17 21:38 Chloride 104 mEq/L (98-107) 07/05/17 21:38 Carbon Dioxide 23.0 mEq/L (21.0-31.0) 07/05/17 21:38 Anion Gap 11.0 (7.0-16.0) 07/05/17 21:38 BUN 55 mg/dL (7-25) H 07/05/17 21:38 Creatinine 2.4 mg/dL (0.7-1.3) H 07/05/17 21:38 Est GFR ( Amer) 35.7 ml/min (>90) 07/05/17 21:38 Est GFR (Non-Af Amer) 29.5 ml/min 07/05/17 21:38 BUN/Creatinine Ratio 22.9 07/05/17 21:38 Glucose 146 mg/dL (70-105) H 07/05/17 21:38 Calcium 9.0 mg/dL (8.6-10.3) 07/05/17 21:38 Total Bilirubin 0.3 mg/dL (0.3-1.0) 07/05/17 21:38 AST 13 U/L (13-39) 07/05/17 21:38 ALT 12 U/L (7-52) 07/05/17 21:38 Alkaline Phosphatase 75 U/L (34-104) 07/05/17 21:38 Total Protein 6.3 gm/dL (6.0-8.3) 07/05/17 21:38 Albumin 4.2 gm/dL (4.2-5.5) 07/05/17 21:38 Globulin 2.1 gm/dL 07/05/17 21:38 Albumin/Globulin Ratio 2.0 (1.0-1.8) H 07/05/17 21:38 TSH 2.27 uIU/ml (0.34-5.60) 07/05/17 21:38 - Physical Exam Vitals and I&O: Vital Signs Temp 99.5 F 07/11/17 05:34 Pulse 61 07/11/17 09:11 Resp 20 07/11/17 05:34 BP 147/68 07/11/17 09:11 Pulse Ox 99 07/11/17 05:34 Intake & Output 07/10/17 07/11/17 07/11/17 18:59 06:59 18:59 Intake Total 480 Balance 480 Intake: Oral 480 Other: # Voids 2 # Bowel Movements 1 Active Medications: Current Medications Acetaminophen (Tylenol) 650 mg PO Q4HR PRN PRN Reason: Pain or Fever >101 Stop: 09/04/17 01:19 Acetaminophen/Hydrocodone Bitart ([place] 10 Mg/325 Mg) 1 tab PO Q6H PRN PRN Reason: Pain (Moderate) Stop: 09/04/17 01:19 Last Admin: 07/10/17 10:09 Dose: 1 tab Allopurinol (Zyloprim) 300 mg PO DAILY [facility] Stop: 09/04/17 08:59 Last Admin: 07/11/17 08:55 Dose: 300 mg Alprazolam (Xanax) 2 mg PO Q8HR PRN PRN Reason: Anxiety Amlodipine Besylate (Norvasc) 10 mg PO DAILY [facility] Stop: 09/04/17 08:59 Last Admin: 07/11/17 09:11 Dose: 10 mg Atorvastatin Calcium (Lipitor) 80 mg PO DAILY [facility] PRN Reason: Protocol Stop: 09/04/17 08:59 Last Admin: 07/11/17 08:53 Dose: 80 mg Bupropion HCl (Wellbutrin Xl) 150 mg PO DAILY [facility] PRN Reason: Protocol Stop: 09/05/17 08:59 Last Admin: 07/11/17 08:53 Dose: 150 mg Clopidogrel Bisulfate (Plavix) 75 mg PO DAILY [facility] Stop: 09/04/17 08:59 Last Admin: 07/11/17 08:53 Dose: 75 mg Colchicine (Colcrys) 0.6 mg PO DAILY [facility] Stop: 09/04/17 08:59 Last Admin: 07/11/17 09:00 Dose: 0.6 mg Ezetimibe (Zetia) 10 mg PO DAILY [facility] Stop: 09/04/17 08:59 Last Admin: 07/11/17 08:55 Dose: 10 mg Fluoxetine HCl (Prozac) 40 mg PO DAILY [facility] Stop: 09/05/17 08:59 Last Admin: 07/11/17 08:54 Dose: 40 mg Folic Acid (Folate) 1 mg PO DAILY [facility] Stop: 09/04/17 08:59 Last Admin: 07/11/17 08:55 Dose: 1 mg Gabapentin (Neurontin) 800 mg PO Q8HR [facility] Stop: 09/04/17 04:59 Last Admin: 07/11/17 05:09 Dose: 800 mg Isosorbide Mononitrate (Imdur) 60 mg PO BID [facility] Stop: 09/04/17 08:59 Last Admin: 02/18/18 09:11 Dose: 60 mg Memantine (Namenda) 10 mg PO DAILY [facility] Stop: 09/04/17 08:59 Last Admin: 07/11/17 08:55 Dose: 10 mg Metoprolol Succinate (Toprol Xl) 25 mg PO DAILY [facility] Stop: 09/04/17 08:59 Last Admin: 07/11/17 09:09 Dose: 25 mg Miscellaneous (Ranolazine [Ranexa]) 1,000 mg PO BID [facility] Stop: 09/04/17 08:59 Nitroglycerin (Nitrostat) 0.4 mg SL Q5MIN PRN PRN Reason: Chest Pain Stop: 09/04/17 01:19 Oxycodone HCl (Oxycontin) 10 mg PO TID PRN PRN Reason: Pain (Severe) Stop: 09/04/17 01:19 Last Admin: 07/11/17 05:09 Dose: 10 mg Risperidone (Risperdal) 1 mg PO BID [facility] PRN Reason: Protocol Stop: 09/05/17 08:59 Last Admin: 07/11/17 08:59 Dose: 1 mg Terazosin HCl (Hytrin) 10 mg PO [facility] Stop: 09/04/17 20:59 Last Admin: 07/10/17 21:36 Dose: Not Given Trazodone HCl (Desyrel) 150 mg PO [facility] Stop: 09/05/17 20:59 Last Admin: 07/10/17 21:36 Dose: 150 mg General: Alert, No acute distress HEENT: Atraumatic, PERRLA, EOMI Neck: Supple, JVD Cardiovascular: Regular rate, Normal S1, Normal S2 Lungs: Clear to auscultation Abdomen: Bowel sounds, Soft, Other (pain pump in place) Assessment/Plan - Assessment Assessment: 1.HTN. 2.CAD. 3.BPH. 4.Depression 5.PVD 6.Spinal Stenosis - Plan Plan: cont current treatment Nutritional Asmnt/Malnutr-PDOC - Dietary Evaluation Malnutrition Findings (Please click <Entered> for more info): Nutritional Asmnt/Malnutrition Start: 07/08/17 11: 55 Text: Status: Complete Freq: Document 07/08/17 11:56 [email or web address] (Rec: 07/08/17 12:08 [email or web address]) Nutritional Asmnt/Malnutrition Patient General Information Nutritional Screening Moderate Risk Diagnosis psychosis Pertinent Medical Hx/Surgical Hx HTN, HLD, gout, arthritis, BPH , dementia Subjective Information Pt confused. PO intake has been 100% since admit. Current Diet Order/ Nutrition Support mechanical soft, chopped, EMILIE Patient / S.O Not Indicated Pertinent Medications plavix, zetia, folate, hytrin Pertinent Labs 07/05 Na: 134, BUN: 55, cr: 2.4 , glucose: 146 Nutritional Hx/Data Height 1.75 m Height (Calculated Centimeters) 175.3 Current Weight (lbs) 56.699 kg Weight (Calculated Kilograms) 56.7 Weight (Calculated Grams) 92703.0 [place] Body Weight 160 % [place] Body Weight 78 Body Mass Index (BMI) 18.4 Weight Status Underweight GI Symptoms GI Symptoms None Last BM 07/08 Difficult in: Chewing Skin Integrity/Comment: intact, no edema Current %PO Good (75-100%) Estimated Nutritional Goals BEE in Kcals: Using Current wt Calories/Kcals/Kg 30-35 wt gain Kcals Calculated 7884-3484 Protein: Using Current wt Protein g/k.6-0.8 renal impairment Protein Calculated 34-46 g Fluid: ml 3471-6625 mL Nutritional Problem 2. Problem Problem underweight Etiology lifestyle, ? DM Signs/Symptoms: BMI: 18.4 1. Problem Problem altered nutrition related lab values Etiology ? CKD, ? DM Signs/Symptoms: BUN: 55, cr: 2.4, glcuose: 146 Malnutrition Alert Is there a minimum of two criteria No selected? Query Text:Check all the applicable criteria. A minimum of two criteria are recommended for diagnosis of either severe or non-severe malnutrition. Malnutrition Related to Morbid Obesity Malnutrition related to morbid obesity No Intervention/Recommendation Recommendations by RD Increase Calorie Intake Comments 1. Change diet to mechanical soft, chopped, EMILIE diet, double portion of carbs for wt gain without further impairing renal function 2. Check hgba1c due to elevated BS Expected Outcomes/Goals Expected Outcomes/Goals PO intake >50%, no wt loss, labs approach WNL monitor wts, labs, skin, PO intake
--- NOTE | 2017-07-11 17:30 | Progress Notes ---
DATE: SUBJECTIVE: The patient was seen, chart reviewed and discussed with staff. The patient continues to be very depressed, endorsing feelings of hopelessness, helplessness as well as severe anxiety, especially about his discharge. He otherwise has been compliant with medications, denying any undue side effects. PLAN: The patient continues to have persistent depression and anxiety, so that he could benefit from continued inpatient stay. We will continue the patient on current medication and titrate as needed. [facility]# [id number]
--- NOTE | 2017-07-11 21:34 | Progress Notes ---
DATE: SUBJECTIVE: The patient seen, chart reviewed, and discussed with staff. The patient continues to be very confused, depressed and withdrawn. Continues to be anxious regarding his discharge. He has never been compliant with his medications, denying any undue side effects. PLAN: The patient continues to be very depressed. It was felt that he will require continued inpatient care for stabilization and treatment as well as help with placement. [facility]# [id number]
[2017-07-12] MEDS: buPROPion XL 150 mg T 24 H PO SCH (08:30)
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
== END 2017-07-12 11:25 | DRG 885 ==
LOC: ER 19:52 → GERO 22:25 → GERO2 07-12 09:56
PROVIDERS: ADMIT Psychiatry & Neurology Psychiatry; ATTEND Psychiatry & Neurology Psychiatry
DX: F32.3 Major depressive disorder, single episode, severe with psychotic features (principal); F02.81 Dementia in other diseases classified elsewhere, unspecified severity, with behavioral disturbance; N18.9 Chronic kidney disease, unspecified; F03.90 Unspecified dementia, unspecified severity, without behavioral disturbance, psychotic disturbance, mood disturbance, and anxiety; M48.02 Spinal stenosis, cervical region; F41.9 Anxiety disorder, unspecified; M10.9 Gout, unspecified; I12.9 Hypertensive chronic kidney disease with stage 1 through stage 4 chronic kidney disease, or unspecified chronic kidney disease; E78.5 Hyperlipidemia, unspecified; N40.0 Benign prostatic hyperplasia without lower urinary tract symptoms; I25.10 Atherosclerotic heart disease of native coronary artery without angina pectoris; F17.210 Nicotine dependence, cigarettes, uncomplicated; I73.9 Peripheral vascular disease, unspecified; Z86.73 Personal history of transient ischemic attack (TIA), and cerebral infarction without residual deficits
CPT/HCPCS: 36415-UA; 80053-TC; 84443-TC; 85025-TC; 85652-TC; 93005; Z7610